=== PATIENT | female | born 1970 | race Caucasian/White ===

== ENCOUNTER 2018-09-06 21:31 | Emergency (ER) | payer MEDICAID ==
[~2018-09-06] VITALS: Ht 165.1 cm; Wt 66.7 kg
--- NOTE | 2018-09-06 22:00 | NUR ---
FIRST CONTACT WITH PT. PT C/O BILATERAL MID LOWER BACK PAIN. DENIES ANY INJURY OR HX OF SAME. C/O CONSTIPATION; LAST BM 5 DAYS AGO. PT'S AOX4. RESPS EVEN AND UNLABORED. BP/SPO2 MONITORS IN PLACE. CALL LIGHT WITHIN REACH.
[2018-09-06] MEDS ORDERED: KETOROLAC 30 MG/1 ML ONE (22:17)
[2018-09-06] MEDS ORDERED: METHOCARBAMOL 750 MG TABLET ONE (22:17)
--- NOTE | 2018-09-06 22:26 | NUR ---
PT MEDICATED PER EMAR. PT TOLERATED WELL. PT'S AOX4. RESP SEVEN AND UNLABORED.
[2018-09-06] MEDS ORDERED: KETOROLAC 30 MG/1 ML IM ONE (22:30)
[2018-09-06] MEDS ORDERED: METHOCARBAMOL 750 MG TABLET PO ONE (22:30)
--- NOTE | 2018-09-06 22:36 | NUR ---
PT WAS NOT ABLE TO PROVIDE URINE SAMPLE AT THIS TIME. PT PROVIDED URINE CUP.
[2018-09-06] MEDS ORDERED: HYDR-3240 PO (22:45)
[2018-09-06] MEDS ORDERED: MORPHINE PO (22:45)
[2018-09-06] MEDS ORDERED: LISI-170 PO (22:46)
--- NOTE | 2018-09-06 23:12 | NUR ---
PT WAS NOT ABLE TO PROVIDE URINE SAMPLE STILL. PT STATES "I WILL TRY IT SOON" AT THIS TIME.
--- NOTE | 2018-09-06 23:34 | NUR ---
PT STATES "I FEEL MUCH BETTER, SO I WANNA GO HOME." EDMD NOTIFIED.
[2018-09-06 23:52] VITALS: BP 113/69
--- NOTE | 2018-09-06 23:53 | NUR ---
PT GIVEN DC INSTRUCTIONS AND SCRIPT. PT EDUCATED REGADRING DC MEDICATION. PT'S AOX4. RESPS EVEN AND UNLABORED. PT AMB TO DC WITH STEADY GAIT. NO ACUTE DISTRESS AT DC.
== END 2018-09-06 23:54 | disposition home or self-care (01) ==
LOC: ED 23:05
DX: S39.012A Strain of muscle, fascia and tendon of lower back, initial encounter (principal); X58.XXXA Exposure to other specified factors, initial encounter; Y93.89 Activity, other specified; Y92.89 Other specified places as the place of occurrence of the external cause; Y99.8 Other external cause status
CPT/HCPCS: 96372; 99283; J1885